=== PATIENT | female | born 1970 | race Caucasian/White ===

== ENCOUNTER → 2017-12-24 | Outpatient (CLI) | payer BC ==
--- NOTE | 2017-12-27 13:26 | MM ---
Reason for exam: screening (asymptomatic). Last mammogram was performed 2 years and 5 months ago. History: Patient is postmenopausal. Family history of breast cancer in paternal grandmother at age 62 and breast cancer in paternal aunt. Retro-pectoral silicone gel implants, 2016. Benign right breast aspiration of the right breast, November 09, 2012. Benign cyst aspiration of the right breast, May 16, 2008. Retro-pectoral saline implants in both breasts, 1993. Took hormonal contraceptives for 2 years. Physical Findings: A clinical breast exam by your physician is recommended on an annual basis and results should be correlated with mammographic findings. MG 3D Screen Mammo Imp/Cad Bilateral CC and MLO view(s) were taken. Prior study comparison: August 08, 2015, bilateral MG 3d diag mammo imp w/cad JEIMY. July 30, 2014, bilateral MG diagnostic mammo w CAD JEIMY. There are scattered fibroglandular densities. Asymmetric breast tissue on left CC 2-3cm from nipple upper outer quadrant. This finding is changed when compared with previous exams. ASSESSMENT: Incomplete: need additional imaging evaluation, BI-RAD 0 RECOMMENDATION: Ultrasound of the left breast. [facility] will attempt to contact patient to return for ultrasound.
== END | disposition home or self-care (01) ==
LOC: RADMAMWWP 09:51
PROVIDERS: ATTEND Family Medicine
DX: Z12.31 Encounter for screening mammogram for malignant neoplasm of breast (principal)
CPT/HCPCS: 77063; 77067

== ENCOUNTER → 2017-12-31 | Outpatient (CLI) | payer BC ==
--- NOTE | 2018-01-03 07:56 | USB ---
Reason for exam: additional evaluation requested from abnormal screening. History: Patient is postmenopausal. Family history of breast cancer in paternal grandmother at age 62 and breast cancer in paternal aunt. Retro-pectoral silicone gel implants, 2016. Benign right breast aspiration of the right breast, November 09, 2012. Benign cyst aspiration of the right breast, May 16, 2008. Retro-pectoral saline implants in both breasts, 1993. Took hormonal contraceptives for 2 years. Physical Findings: Nurse Summary: BB at scar, BB at 1 o'clock right breast 3-6 o'clock (nurse kristopher). US Breast Workup Limited JEIMY Right breast ultrasound demonstrates no cystic or solid lesion seen. Left breast ultrasound includes all four quadrants, the retroareolar region and axilla. Finding demonstrates a 0.5 x 0.3 x 0.6cm oval, cystic lesion at 2 o'clock. These results were verbally communicated with the patient and result sheet given to the patient on 12/31/17. ASSESSMENT: Benign, BI-RAD 2 RECOMMENDATION: Return to routine screening mammogram schedule for both breasts. Manage patient on a clinical basis.
== END | disposition home or self-care (01) ==
LOC: RADUSWWP 14:46
PROVIDERS: ATTEND Family Medicine
DX: R92.8 Other abnormal and inconclusive findings on diagnostic imaging of breast (principal)

== ENCOUNTER → 2018-07-04 | Outpatient (CLI) | payer BC ==
--- NOTE | 2018-07-04 09:42 | P.STRESS ---
- Stress Test Note Stress Test Results/Findings: Exam Performed: stress test Exam Date: 07/04/18 Reason for Exam: CHEST PAIN Height: 5 ft 6 in Weight: 67.585 kg Protocol: JOHNATHAN Stage: 4 Duration of Exercise: 10:00 Resting Heart Rate: 90 Resting Blood Pressure: 137/85 Maximum Achieved Heart Rate: 152 Maximum Achieved Blood Pressure: 193/63 85% PMHR: 145 100% PMHR: 170 METS: 11.7 Technologist Comment: Stress Test Results/Findings: Baseline heart rate 90 beats a minute Baseline blood pressure 137/85 mmHg Patient exercised on a Johnathan protocol for 10 minutes achieving a peak heart rate of 152 beats a minute. Normal blood pressure response to exercise. There was a [address] depression noted no arrhythmias noted Impression Good exercise capacity on a Johnathan protocol for 10 minutes [address] depression with exercise. Her baseline 12-lead ECG was normal Borderline ECG changes noted/borderline abnormal ECG
== END | disposition home or self-care (01) ==
LOC: RADNMMAIN 08:32
PROVIDERS: ATTEND Family Medicine
DX: R07.9 Chest pain, unspecified (principal)
CPT/HCPCS: 93017

== ENCOUNTER → 2018-08-22 | Outpatient (CLI) | payer BC ==
--- NOTE | 2018-08-22 15:28 | US ---
EXAMINATION TYPE: US thyroid st tissue head/neck DATE OF EXAM: 08/22/2018 COMPARISON: NONE CLINICAL HISTORY: E07.9 Disorder of thyroid, unspecified. Thyroidomegaly GLAND SIZE: Right Lobe: 5.0 x 1.4 x 1.4 cm Overall Parenchyma: homogenous Left Lobe: 4.3 x 1.0 x 1.4 cm Overall Parenchyma: homogeneous Isthmus Thickness: 0.2 cm NODULES RIGHT: # of nodules measured on right: 0 LEFT: # of nodules measured on left: 0 ISTHMUS: # of nodules measured in the isthmus: 0 Bilateral neck scanned, no evidence of lymphadenopathy. IMPRESSION: Mildly enlarged homogeneous thyroid gland without discrete nodule.
== END ==
LOC: RADUSWWP 13:32
PROVIDERS: ATTEND Family Medicine
DX: E04.9 Nontoxic goiter, unspecified (principal)
CPT/HCPCS: 76536

== ENCOUNTER → 2019-05-01 | Outpatient (CLI) | payer BC ==
--- NOTE | 2019-05-01 15:04 | MM ---
Reason for exam: screening (asymptomatic). Last mammogram was performed 1 year and 4 months ago. History: Patient is postmenopausal. Family history of breast cancer in paternal grandmother at age 62 and breast cancer in paternal aunt. Retro-pectoral silicone gel implants, 2016. Benign right breast aspiration of the right breast, November 09, 2012. Benign cyst aspiration of the right breast, May 16, 2008. Retro-pectoral saline implants in both breasts, 1993. Took hormonal contraceptives for 2 years. Physical Findings: A clinical breast exam by your physician is recommended on an annual basis and results should be correlated with mammographic findings. MG 3D Screen Mammo Imp/Cad Bilateral CC, MLO, and ID view(s) were taken. Prior study comparison: December 24, 2017, bilateral MG 3d screen mammo imp/cad. August 08, 2015, bilateral MG 3d diag mammo imp w/cad JEIMY. The breast tissue is heterogeneously dense. This may lower the sensitivity of mammography. Previous mammotome biopsy in the right breast. Bilateral implants are intact. No significant changes when compared with prior studies. ASSESSMENT: Benign, BI-RAD 2 RECOMMENDATION: Routine screening mammogram of both breasts in 1 year.
== END ==
LOC: RADMAMWWP 08:23
PROVIDERS: ATTEND Family Medicine
DX: Z12.31 Encounter for screening mammogram for malignant neoplasm of breast (principal); Z98.82 Breast implant status
CPT/HCPCS: 77063; 77067

== ENCOUNTER → 2020-03-20 | Outpatient (CLI) | payer BC | END | disposition home or self-care (01) | LOC: LABWHC1 14:48 | PROVIDERS: ATTEND Family Medicine | DX: R50.9 Fever, unspecified (principal); R05 Cough; M79.10 Myalgia, unspecified site; R06.02 Shortness of breath | CPT/HCPCS: 36415; 86769 ==

== ENCOUNTER → 2020-08-21 | Outpatient (CLI) | payer BC ==
--- NOTE | 2020-08-23 09:15 | MM ---
Reason for exam: screening (asymptomatic). Last mammogram was performed 1 year and 4 months ago. History: Patient is postmenopausal. Family history of breast cancer in paternal grandmother at age 62 and breast cancer in paternal aunt. Retro-pectoral silicone gel implants, 2016. Benign right breast aspiration of the right breast, November 09, 2012. Benign cyst aspiration of the right breast, May 16, 2008. Retro-pectoral saline implants in both breasts, 1993. Took hormonal contraceptives for 2 years. Physical Findings: A clinical breast exam by your physician is recommended on an annual basis and results should be correlated with mammographic findings. MG 3D Screen Mammo Imp/Cad Bilateral CC, MLO, and ID view(s) were taken. Prior study comparison: May 01, 2019, bilateral MG 3d screen mammo imp/cad. December 24, 2017, bilateral MG 3d screen mammo imp/cad. The breast tissue is heterogeneously dense. This may lower the sensitivity of mammography. Previous mammotome biopsy in the right breast. There is chronic nodularity in the left breast. There is no discrete abnormality. Bilateral subpectoral implants. ASSESSMENT: Benign, BI-RAD 2 RECOMMENDATION: Routine screening mammogram of both breasts.
== END | disposition home or self-care (01) ==
LOC: RADMAMWWP 09:13
PROVIDERS: ATTEND Family Medicine
DX: Z12.31 Encounter for screening mammogram for malignant neoplasm of breast (principal); Z98.82 Breast implant status
CPT/HCPCS: 77063; 77067

== ENCOUNTER → 2021-08-26 | Outpatient (CLI) | payer BC ==
--- NOTE | 2021-08-27 12:45 | MM ---
Reason for exam: screening (asymptomatic). Last mammogram was performed 1 year ago. History: Patient is postmenopausal. Family history of breast cancer in paternal grandmother at age 62 and breast cancer in paternal aunt. Retro-pectoral silicone gel implants, 2016. Benign right breast aspiration of the right breast, November 09, 2012. Benign cyst aspiration of the right breast, May 16, 2008. Retro-pectoral saline implants in both breasts, 1993. Took hormonal contraceptives for 2 years. Physical Findings: A clinical breast exam by your physician is recommended on an annual basis and results should be correlated with mammographic findings. MG 3D Screen Mammo Imp/Cad Bilateral CC, MLO, and ID view(s) were taken. Prior study comparison: August 21, 2020, bilateral MG 3d screen mammo imp/cad. May 01, 2019, bilateral MG 3d screen mammo imp/cad. There are scattered fibroglandular densities. No significant changes when compared with prior studies. ASSESSMENT: Benign, BI-RAD 2 RECOMMENDATION: Routine screening mammogram of both breasts in 1 year.
== END | disposition home or self-care (01) ==
LOC: RADMAMWWP 09:32
PROVIDERS: ATTEND Family Medicine
DX: Z12.31 Encounter for screening mammogram for malignant neoplasm of breast (principal); Z78.0 Asymptomatic menopausal state; Z80.3 Family history of malignant neoplasm of breast
CPT/HCPCS: 77063; 77067

== ENCOUNTER → 2022-08-27 | Outpatient (CLI) | payer BC ==
--- NOTE | 2022-08-27 17:47 | BD ---
EXAMINATION TYPE: Axial Bone Density DATE OF EXAM: 08/27/2022 COMPARISON: NONE CLINICAL HISTORY: 52 year old Female. ICD-10 CODE: Z78.0 POST MENOPAUSAL Height: 66 Weight: 158.3 FRAX RISK QUESTIONS: Alcohol (3 or more units per day): no Family History (Parent hip fracture): no Glucocorticoids (More than 3mos): no (Ex: prednisone, prednisolone, methylprednisolone, dexamethasone, and hydrocortisone). History of Fracture in Adulthood: no Secondary Osteoporosis: 1. Type 1 Diabetes: no 2. Hyperthyroidism: no 3. Menopause before 45: yes 4. Malnutrition: no 5. Chronic liver disease: no Rheumatoid Arthritis: no Current Tobacco Use: no RISK FACTORS HISTORY OF: Surgery to Spine/Hip(right/left)/Wrist (right/left): no Family History of Osteoporosis: no Active: yes Diet low in dairy products/other sources of calcium: yes Postmenopausal woman: yes Lost more than 2 inches in height since high school: no MEDICATIONS: Additional History: EXAM MEASUREMENTS: Bone mineral densitometry was performed using the [employer] System. Bone mineral density as measured about the Lumbar spine is: ----- L1-L4(G/cm2): 1.175 T Score Values are as follows: ----- L1: -0.3 ----- L2: -0.2 ----- L3: 0.6 ----- L4: -0.4 ----- L1-L4: 0.0 Bone mineral density : baseline Bone mineral density about the R hip (g/cm2): 0.805 Bone mineral density about the L hip (g/cm2): 0.807 T Score values are as follows: -----R Neck -1.7 -----L Neck: -1.7 -----R Total: -1.3 -----L Total: -1.3 Bone mineral density : baseline FRAX%s: The graph provided illustrates a 6.9% chance for a major osteoporotic fx and a 0.6% chance fo r the hips probability for fx in 10 years time. IMPRESSION: Osteopenia (T Score between -2.5 and -1). There is slightly increased risk of fracture and the patient may be considered for treatment. Re-Screen 2-5 years. NOTE: T-SCORE=SD OF THE YOUNG ADULT MEAN.
--- NOTE | 2022-08-28 07:27 | MM ---
Reason for Exam: Screening (asymptomatic). Last screening mammogram was performed 12 month(s) ago. Patient History: Menarche at age 10. First Full-Term at age 17. Hysterectomy at age 38. Postmenopausal. Patient used Hormonal Contraceptives for 2 years. 05/16/2008, Benign Cyst Aspiration on the right side. 11/09/2012, Benign Cyst Aspiration on the right side. 1993, Bilateral Implants. 2015, Implant(s). Paternal grandmother had breast cancer, age 62. Paternal aunt had breast cancer. Risk Values: Vandana 5 year model risk: 0.8%. NCI Lifetime model risk: 6.1%. Prior Study Comparison: 05/01/2019 Bilateral Screening Mammogram, [facility]. 08/21/2020 Bilateral Screening Mammogram, [facility]. 08/26/2021 Bilateral Screening Mammogram, [facility]. Tissue Density: There are scattered fibroglandular densities. Findings: Analyzed By CAD. Bilateral subpectoral breast implants are redemonstrated. Biopsy clip in the right breast is again seen. Benign-appearing bilateral axillary lymph nodes. No suspicious new mass or distortion bilaterally. Overall Assessment: Benign, BI-RAD 2 Management: Screening Mammogram of both breasts in 1 year. A clinical breast exam by your physician is recommended on an annual basis and results should be correlated with mammographic findings. Electronically signed and approved by: Cortes Rhodes M.D.
== END | disposition home or self-care (01) ==
LOC: RADMAMWWP 08:19
PROVIDERS: ATTEND Family Medicine
DX: Z12.31 Encounter for screening mammogram for malignant neoplasm of breast (principal); M85.89 Other specified disorders of bone density and structure, multiple sites; Z78.0 Asymptomatic menopausal state; Z80.3 Family history of malignant neoplasm of breast
CPT/HCPCS: 77063; 77067; 77080

== ENCOUNTER → 2023-10-07 | Outpatient (CLI) | payer BC ==
--- NOTE | 2023-10-08 14:21 | BMR ---
EXAM DATE: 10/08/2023 EXAM DESCRIPTION: MRI-Breast Bilat (W/O Contrast) INDICATION: Palpable finding in the right breast. Prior history of bilateral breast augmentation. For evaluation for implant rupture. COMPARISON: Mammogram dated 08/27/2022 CONTRAST: None. TECHNIQUE: Multi sequence multiplanar MR imaging of the breasts was obtained including axial T1, T2 SPAIR and silicone sensitive images. Sagittal and coronal images were also obtained. [facility]. Post processing was performed utilizing a [employer] CAD workstation. FINDINGS: The breasts are composed of scattered fibroglandular tissue. There is no axillary or internal mammary lymphadenopathy. No focal skin thickening or nipple retraction. Bone marrow signal intensity is unremarkable. No adenopathy in the visualized mediastinum. T2 weighted images demonstrated no dominant cystic lesion in either breast. Silicone sensitive images demonstrated intact bilateral subpectoral silicone implants. A few incomplete radial folds are present. No evidence of intra or extracapsular implant rupture. There is no abnormal signal or enhancement in the chest wall or subcutaneous tissue. IMPRESSION: 1. Intact bilateral subpectoral silicone implants. 2. No axillary or internal mammary lymphadenopathy. MTDD
--- NOTE | 2023-10-08 20:23 | MM ---
Reason for Exam: Screening (asymptomatic). Last mammogram was performed 1 year(s) and 1 month(s) ago. Patient History: Menarche at age 10. First Full-Term at age 17. Hysterectomy at age 38. Postmenopausal. Patient used Hormonal Contraceptives for 2 years. 05/16/2008, Benign Cyst Aspiration on the right side. 11/09/2012, Benign Cyst Aspiration on the right side. 1993, Bilateral Implants. 2015, Implant(s). Paternal grandmother had breast cancer, age 62. Paternal aunt had breast cancer. Risk Values: Vandana 5 year model risk: 0.8%. NCI Lifetime model risk: 6.0%. Prior Study Comparison: 08/21/2020 Bilateral Screening Mammogram, [facility]. 08/26/2021 Bilateral Screening Mammogram, [facility]. 08/27/2022 Bilateral MG 3D screen mammo imp/cad., [facility]. Tissue Density: There are scattered fibroglandular densities. Findings: Analyzed By CAD. Redemonstrated retropectoral silicone implants on both sides. Microclip right breast from prior biopsy. There is no suspicious group of microcalcifications or new suspicious mass in either breast. Overall Assessment: Benign, BI-RAD 2 Management: Screening Mammogram of both breasts in 1 year. . Patient should continue monthly self-breast exams. A clinical breast exam by your physician is recommended on an annual basis. This exam should not preclude additional follow-up of suspicious palpable abnormalities. Note on Vandana scores and lifetime risk: 1. A Vandana score greater than 3% is considered moderate risk. If this is the case, consider specialist referral to assess eligibility for a risk reducing agent. 2. If overall lifetime risk for the development of breast cancer is 20% or higher, the patient may qualify for future screening with alternating mammogram and breast MRI. Electronically signed and approved by: Alton Davila M.D. Radiologist
== END | disposition home or self-care (01) ==
LOC: RADMAMWWP 14:27
PROVIDERS: ATTEND Family Medicine
DX: Z12.31 Encounter for screening mammogram for malignant neoplasm of breast (principal); Z98.82 Breast implant status
CPT/HCPCS: 77047; 77063; 77067